=== PATIENT | male | born 2005 | race Caucasian/White ===

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

== ENCOUNTER 2025-01-15 20:33 | Emergency (ER) | payer OTHER, MEDICAID, SELFPAY ==
[2025-01-15 20:46] VITALS: BP 140/97; PULSE 78; RESP 16; TEMP 36.7; O2SAT 97; BMI 29.2
--- NOTE | 2025-01-16 00:31 | ED.DENTAL ---
HPI - Dental/Oral General Chief complaint: Dental/Oral Stated complaint: R side tooth/jaw pain Time Seen by Provider: 01/15/25 23:12 Source: patient and family Mode of arrival: Ambulatory Related Data Previous Rx's ?Medication ?Instructions ?Recorded sulfamethoxazole 800 1 tab PO BID #8 tabs 04/24/23 mg-trimethoprim 160 mg tablet (Bactrim DS) Allergies Allergy/AdvReac Type Severity Reaction Status Date / Time No Known Drug Allergies Allergy Verified 01/15/25 20:46 Patient History Social History Smoking Status: Never smoker Smoking Status: Never smoker Exam Initial Vital Signs Initial Vital Signs: Vital Signs Temperature 98.1 F 01/15/25 20:46 Pulse Rate 78 01/15/25 20:46 Respiratory Rate 16 01/15/25 20:46 Blood Pressure 140/97 H 01/15/25 20:46 Pulse Oximetry 97 01/15/25 20:46 Oxygen Delivery Method Room Air 01/15/25 20:46 Course Vital Signs Vital signs: Vital Signs - 8 hr 01/15/25 20:46 Temperature 98.1 F Pulse Rate 78 Respiratory Rate 16 Blood Pressure 140/97 H Pulse Oximetry 97 Oxygen Delivery Method Room Air Discharge Plan Departure Patient Disposition: Left Without Being Seen Clinical Impression: Patient left after triage Prescriptions: No Action sulfamethoxazole-trimethoprim [Bactrim DS] 800-160 mg tablet 1 tab PO BID Qty: 8 0RF
== END 2025-01-15 23:19 | disposition left against medical advice (07) ==
PROVIDERS: Emergency Provider Family Medicine; Family Provider Family Medicine; PCP Family Medicine
CPT/HCPCS: 99281

== ENCOUNTER → 2025-03-12 10:33 | Outpatient (CLI) | payer SELFPAY ==
--- NOTE | 2025-03-12 10:38 | DI.US.S_ITS ---
PROCEDURE: US SOFT TISSUE HEAD AND NECK INDICATIONS: right neck swelling TECHNIQUE: Real-time scanning was performed of the neck region of interest, with image documentation. COMPARISON: None. FINDINGS: Focused ultrasound examination of right submandibular region shows multiple prominent lymph nodes measures up to 2.5 x 1.2 x 1.1 cm and 1.2 x 0.7 x 1.4 cm in size. IMPRESSION: Mildly prominent right submandibular lymph no which may be reactive in nature. Clinical correlation and follow-up is recommended. Dictated by: Robinson Alvarez M.D. on 03/12/2025 at 13:40 Approved by: Robinson Alvarez M.D. on 03/12/2025 at 13:40
== END ==
PROVIDERS: Family Provider Family Medicine; PCP Family Medicine; Referring Provider Family Medicine; Visit Provider Nurse Practitioner Family
DX: R22.1 Localized swelling, mass and lump, neck (principal)
CPT/HCPCS: 76536